=== PATIENT | male | born 1975 | race Two or more races ===

== ENCOUNTER 2020-12-25 08:07 | Emergency (ER) | payer SELFPAY ==
[~2020-12-25] VITALS: Ht 167.6 cm; Wt 90.7 kg
[2020-12-25 08:23] VITALS: BP 163/95
[2020-12-25] MEDS ORDERED: IBUPROFEN 800 MG TAB PO ONE (08:30)
== END 2020-12-25 09:36 | disposition home or self-care (01) ==
LOC: ER 08:07
DX: M25.571 Pain in right ankle and joints of right foot (principal); Z87.81 Personal history of (healed) traumatic fracture
CPT/HCPCS: 73610